=== PATIENT | female | born 1950 | race Caucasian/White ===

== ENCOUNTER 2019-06-24 07:24 | Inpatient (IN) | payer OTHER, MEDICARE ==
[2019-06-24] MEDS ORDERED: PROMETHAZINE 25 MG/ML VIAL ONE ×2 (07:53→08:47)
[2019-06-24] MEDS ORDERED: FENTANYL CITR 100 MCG/2 ML ONE ×3 (07:54→16:13)
[2019-06-24] MEDS ORDERED: NA CHLORIDE 0.9% 1,000 ML ONE ×2 (07:54→20:25)
[2019-06-24 08:07] LABS: Absolute Lymphocytes (CBC) 0.9 K/uL (0.7-4.9); Basophils % 0.5 % (0-1.3); Hematocrit 34.3 % (36.0-45.0); Lymphocytes % 7.9 % (15.3-44.8); MPV 7.9 fL (7.6-11.3); Protime INR 1.13; RBC Red Blood Cell Count 4.52 M/uL (3.86-4.86)
[2019-06-24 08:51] LABS: ALT/SGPT 18 U/L (12-78); AST/SGOT 14 U/L (15-37); Albumin 3.3 g/dL (3.4-5.0); Alkaline Phosphatase 136 U/L (45-117); BUN Blood Urea Nitrogen 19 mg/dL (7-18); Bicarbonate 25 mmol/L (21-32); Bilirubin Direct 0.2 mg/dL (0-0.2); Bilirubin Total 0.6 mg/dL (0.2-1.0); Glucose Level 275 mg/dL (74-106); Lipase 635 U/L (73-393); Magnesium 1.5 mg/dL (1.8-2.4); NT PRO-BNP 124 pg/mL (<125); Potassium 4.1 mmol/L (3.5-5.1); Sodium Level 139 mmol/L (136-145); Troponin (Emerg Dept Use Only) < 0.02 ng/mL (0.0-0.045)
[2019-06-24] MEDS ORDERED: Magnesium Sulfate 2gm IVPB 2 G/50 ML BAG IV ONE (09:43)
--- NOTE | 2019-06-24 10:04 | RAD REPORT ---
EXAM DESCRIPTION: CT - Angio Aorta For Dissection - 06/24/2019 9:15 am CLINICAL HISTORY: pain/vomiting;Abdominal distention COMPARISON: None. TECHNIQUE: Dynamically enhanced 3 mm thick images of the chest, abdomen, and upper pelvis were obtai rikki during administration of approximately 150mL Isovue 370 IV contrast. Sagittal and coronal reconst ruction images were generated using MIP and reviewed. Exam utilizes a protocol to evaluate entire cou rse of the aorta. All CT scans are performed using dose optimization technique as appropriate and may include automated exposure control or mA/KV adjustment according to patient size. FINDINGS: Aorta is normal in diameter with no dissection or other acute aortic findings. Reconstruct ion images show no significant findings. No pulmonary artery abnormality. No cardiomegaly, pericardial thickening or pericardial effusion. Bilateral upper lobes are clear. There is trace stranding in the right middle lobe. Left lower lobe s hows no acute findings. There is trace bronchiectasis. Patient has prominent right lower lobe bronchi ectasis with volume loss. Additional airspace opacities are present in the right lower lobe. Bronchia l wall thickening is present. No pleural thickening, pleural effusion or pneumothorax. No abnormal mediastinal or hilar mass or lymphadenopathy seen. No chest wall mass or abnormal axillar y lymphadenopathy. Celiac, SMA and renal arteries show no suspicious findings. 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 The liver, spleen and pancreas are grossly normal. Cholecystectomy clips are present. No biliary tree dilatation. Renal function is symmetric in the arterial phase. The patient does have a 12 x 8 mm left UPJ calculus causing hydronephrosis of the left pelvis and calices. There is strandi ng in the left perinephric fat compared to the right. Additional calculi are present in the lower boby e calices on the left. No urinary bladder abnormality. Uterus and ovaries show no suspicious findings for age. No mass or abnormal lymphadenopathy. No free air, free fluid or inflammatory stranding. Significant bilateral hip joint degenerative change present. Degenerative changes are present in the spine without an acute bone finding evident. IMPRESSION: No aneurysm, dissection or acute aortic finding identified. Right lower lobe bronchiectasis, bronchial wall thickening, partial atelectasis and airspace opacitie s are present. No remote imaging is available. Acute or chronic nature of the airspace disease cannot be assessed on a single baseline exam. Acute pneumonia superimposed on bronchiolitis/bronchiectasis pattern is suspected and needs correlati on with clinical findings. Left-sided hydronephrosis secondary to a 12 x 8 mm calcification at the left UPJ. The stone is at jones st partially obstructing and needs correlation with clinical presentation.
--- NOTE | 2019-06-24 10:31 | RAD REPORT ---
EXAM DESCRIPTION: RAD - Chest Single View - 06/24/2019 8:16 am CLINICAL HISTORY: Abdominal pain and distention, back pain COMPARISON: None. TECHNIQUE: AP portable chest image was obtained 0814 hours . FINDINGS: Focal interstitial opacification and some patchy alveolar opacities are present in the med ial right lung base. In the absence comparison, right lung base pneumonia is suspected. Lung chacon are otherwise clear. No failure or volume overload. Heart and vasculature are normal. No measurable pleural effusion and no pneumothorax. No acute bony abnormality seen. No acute aortic findings suspected. IMPRESSION: Mild or early right base pneumonia.
[2019-06-24] MEDS ORDERED: PIPER/TAZO/NS 3.375gm 3.375 GM/100 ML BAG ONE (10:47)
--- NOTE | 2019-06-24 10:51 | ER ---
Nurse's Notes [facility] Name: Zeinab Schumacher Age: 68 yrs Sex: Female : 1950 Arrival Date: 06/24/2019 Time: 07:28 Bed 5 Private MD: Haseeb Perez V Diagnosis: Hydronephrosis with renal and ureteral calculous obstruction;Hypomagnesemia;Pneumonia, unspecified organism Presentation: 06/24 07:42 Presenting complaint: Patient states: BACK PAIN x1 MONTH, LEFT FLANK PAIN WITH VOMITING bp SINCE 0400. Transition of care: patient was not received from another setting of care. Onset of symptoms was June 24, 2019 at 04:00. Risk Assessment: Do you want to hurt yourself or someone else? Patient reports no desire to harm self or others. Initial Sepsis Screen: Does the patient meet any 2 criteria? No. Patient's initial sepsis screen is negative. Does the patient have a suspected source of infection? No. Patient's initial sepsis screen is negative. Care prior to arrival: None. 07:42 Method Of Arrival: Wheelchair bp 07:42 Acuity: AGNES 3 bp Triage Assessment: 07:46 General: Appears in no apparent distress. comfortable, Behavior is cooperative, bp appropriate for age, anxious. EENT: No deficits noted. Neuro: No deficits noted. Cardiovascular: No deficits noted. Respiratory: No deficits noted. GI: Reports nausea, vomiting. : Reports urinary frequency. Derm: No deficits noted. Musculoskeletal: No deficits noted. Historical: - Allergies: 07:46 UNKNOWN ANTIBIOTIC; bp - Home Meds: 07:46 Metformin Oral [Active]; Glimepiride Oral [Active]; Tradjenta oral oral [Active]; bp - PMHx: 07:46 Diabetes - NIDDM; GERD; High Cholesterol; Hypertension; bp - PSHx: 07:46 Cholecystectomy; bp - Immunization history:: Adult Immunizations unknown, Adult Immunizations up to date. - Social history:: Smoking status: Patient/guardian denies using tobacco, Smoking status: Patient/guardian denies using tobacco. - Ebola Screening: : No symptoms or risks identified at this time No symptoms or risks identified at this time. Screenin:41 Abuse screen: Denies threats or abuse. Denies injuries from another. Nutritional ph screening: No deficits noted. Tuberculosis screening: No symptoms or risk factors identified. Fall Risk None identified. Assessment: 07:47 Pain: Complains of pain in suprapubic area and left flank. ph 07:47 GI: Abdomen is non-distended, Bowel sounds present X 4 quads. bp 09:02 Reassessment: PT TO CT WITH IRON MELTER. bp 09:22 Reassessment: Patient appears in no apparent distress at this time. Patient is alert, ph oriented x 3, equal unlabored respirations, skin warm/dry/pink. Pt returned from CT, noted to be actively vomiting and c/o LLQ pain, anti-emetic and pain medication administered, see DEC. 11:51 Reassessment: ADMIT COMPLETED, PT ULICES. bp Vital Signs: 07:47 BP 192 / 77; Pulse 85; Resp 20; Temp 97.2; Pulse Ox 100% ; Weight 65.77 kg; Height 5 bp ft. 11 in. (180.34 cm); 08:21 BP 189 / 77; Pulse 79; Resp 19; Pulse Ox 97% ; bp 09:06 BP 178 / 75; Pulse 79; Resp 12; Pulse Ox 98% ; bp 10:41 BP 181 / 91; Pulse 77; Resp 20; Pulse Ox 100% on R/A; ph 11:51 BP 172 / 73; Pulse 98; Resp 16; Temp 97.2; Pulse Ox 97% ; bp 07:47 Body Mass Index 20.22 (65.77 kg, 180.34 cm) bp ED Course: 07:28 Patient arrived in ED. ag5 07:28 Haseeb Perez MD is Private Physician. ag5 07:32 Loretta Olmos [facility]-C [facility]. snw 07:33 Asim Mcwilliams MD is Attending Physician. snw 07:41 Arm band placed on Patient placed in an exam room, on a stretcher. ph 07:42 Ray Lindsay, RN is Primary Nurse. bp 07:43 Triage completed. bp 07:43 Patient has correct armband on for positive identification. Placed in gown. Bed in low ph position. Call light in reach. library monitor on. Pulse ox on. NIBP on. Door closed. Noise minimized. Warm blanket given. 07:48 Radiology exam delayed due to lab results not completed at this time. (BUN/Creatinine). kw1 07:56 Lipase Sent. mh5 07:57 Basic Metabolic Panel Sent. 5 07:57 CBC with Diff Sent. 5 07:57 LFT's Sent. 5 07:57 Magnesium Sent. 5 07:57 NT PRO-BNP Sent. 5 07:57 PT-INR Sent. 5 07:57 Troponin (emerg Dept Use Only) Sent. 5 07:57 Initial lab(s) drawn, by me, sent to lab. Inserted saline lock: 20 gauge in right [facility] antecubital area, using aseptic technique. Blood collected. 08:15 XRAY Chest (1 view) In Process Unspecified. EDMS 08:42 Radiology exam delayed due to lab results not completed at this time. (BUN/Creatinine). kw1 09:14 CT completed. Patient tolerated procedure well. Patient moved back from CT. bq 09:17 CT Aorta for Dissection In Process Unspecified. EDMS 10:49 Haseeb Perez MD is Hospitalizing Provider. snw 11:50 No provider procedures requiring assistance completed. Patient admitted, IV remains in bp place. Administered Medications: 07:57 Drug: NS 0.9% 1000 ml Route: IV; Rate: 125 ml/hr; Site: right antecubital; bp 11:53 Follow up: IV Status: Infusion continued upon admission bp 07:58 Drug: fentaNYL (PF) 25 mcg Route: IVP; Site: right antecubital; bp 08:21 Follow up: Response: Pain is decreased bp 07:58 Drug: Phenergan 6.25 mg Route: IVP; Site: right antecubital; bp 08:21 Follow up: Response: No adverse reaction; Nausea is decreased bp 09:23 Drug: Phenergan 6.25 mg Route: IVP; Site: right antecubital; ph 09:47 Follow up: Response: Nausea is decreased bp 09:30 Drug: Magnesium Sulfate 2 grams Route: IVPB; Infused Over: 2 hrs; Site: right bp antecubital; 11:52 Follow up: IV Status: Completed infusion; IV Intake: 50ml bp 09:39 Drug: fentaNYL (PF) 25 mcg Route: IVP; Site: right antecubital; bp 09:39 Follow up: Response: No adverse reaction bp 10:55 Drug: Zosyn 3.375 grams Route: IVPB; Infused Over: 60 mins; Site: right antecubital; ph 11:52 Follow up: IV Status: Completed infusion; IV Intake: 100ml bp Intake: 11:52 IV: 100ml; Total: 100ml. bp 11:52 IV: 50ml; Total: 150ml. bp Outcome: 10:50 Decision to Hospitalize by Provider. snw 11:50 Admitted to Med/surg accompanied by tech, family with patient, via wheelchair, room bp 410, with chart, Report called to PIA SHOEMAKER 11:50 Condition: stable 11:50 Instructed on the need for admit. 12:02 Patient left the ED. bp Signatures: Dispatcher [employer] EDMS Loretta Olmos, DEPUTY SHERIFF BUILDING GUARD-C DEPUTY SHERIFF BUILDING GUARD-Csnw Adriane Mckeon Patricia RN RN Travis, Elaina [facility] Ray Lindsay RN RN bp Sandy Jones kw1 Dino Rivas ag5
--- NOTE | 2019-06-24 10:52 | EDPHYS ---
Physician Documentation [facility] Name: Zeinab Schumacher Age: 68 yrs Sex: Female : 1950 Arrival Date: 06/24/2019 Time: 07:28 Bed 5 Private MD: Haseeb Perez V ED Physician Asim Mcwilliams HPI: 06/24 08:03 This 68 yrs old Female presents to ER via Wheelchair with complaints of Vomiting, Back snw Pain. 08:03 The patient presents to the emergency department with nausea, vomiting, abdominal pain. snw Onset: The symptoms/episode began/occurred suddenly, at 04:00, and became persistent. Possible causes: unknown. Associated signs and symptoms: Pertinent positives: abdominal pain, nausea, vomiting. Severity of symptoms: At their worst the symptoms were moderate severe in the emergency department the symptoms are unchanged. The patient has not experienced similar symptoms in the past. The patient has been recently seen by a physician: the patient's primary care provider, Dr. Perez with different complaint(s), and apparently was diagnosed with GERD. Historical: - Allergies: 07:46 UNKNOWN ANTIBIOTIC; bp - Home Meds: 07:46 Metformin Oral [Active]; Glimepiride Oral [Active]; Tradjenta oral oral [Active]; bp - PMHx: 07:46 Diabetes - NIDDM; GERD; High Cholesterol; Hypertension; bp - PSHx: 07:46 Cholecystectomy; bp - Immunization history:: Adult Immunizations unknown, Adult Immunizations up to date. - Social history:: Smoking status: Patient/guardian denies using tobacco, Smoking status: Patient/guardian denies using tobacco. - Ebola Screening: : No symptoms or risks identified at this time No symptoms or risks identified at this time. ROS: 08:02 Constitutional: Negative for fever, chills, and weight loss, Eyes: Negative for injury, snw pain, redness, and discharge, ENT: Negative for injury, pain, and discharge, Neck: Negative for injury, pain, and swelling, Cardiovascular: Negative for chest pain, palpitations, and edema, Respiratory: Negative for shortness of breath, cough, wheezing, and pleuritic chest pain. 08:02 : Negative for injury, bleeding, discharge, and swelling, MS/Extremity: Negative for injury and deformity, Skin: Negative for injury, rash, and discoloration, Neuro: Negative for headache, weakness, numbness, tingling, and seizure. 08:02 Abdomen/GI: Positive for abdominal pain, nausea and vomiting. 08:02 Abdomen/GI: Positive for "just dx with GERD". 08:02 Back: Positive for pain with movement, of the low back area and right mid back, Hurting for some time as pt "took a fall" about a month ago.. Exam: 08:00 Head/Face: Normocephalic, atraumatic. Eyes: Pupils equal round and reactive to light, snw extra-ocular motions intact. Lids and lashes normal. Conjunctiva and sclera are non-icteric and not injected. Cornea within normal limits. Periorbital areas with no swelling, redness, or edema. ENT: Nares patent. No nasal discharge, no septal abnormalities noted. Tympanic membranes are normal and external auditory canals are clear. Oropharynx with no redness, swelling, or masses, exudates, or evidence of obstruction, uvula midline. Mucous membranes moist. Neck: Trachea midline, no thyromegaly or masses palpated, and no cervical lymphadenopathy. Supple, full range of motion without nuchal rigidity, or vertebral point tenderness. No Meningismus. Chest/axilla: Normal chest wall appearance and motion. Nontender with no deformity. No lesions are appreciated. Cardiovascular: Regular rate and rhythm with a normal S1 and S2. No gallops, murmurs, or rubs. Normal PMI, no JVD. No pulse deficits. Respiratory: Lungs have equal breath sounds bilaterally, clear to auscultation and percussion. No rales, rhonchi or wheezes noted. No increased work of breathing, no retractions or nasal flaring. Back: No spinal tenderness. No costovertebral tenderness. Full range of motion. MS/ Extremity: Pulses equal, no cyanosis. Neurovascular intact. Full, normal range of motion. Neuro: Awake and alert, GCS 15, oriented to person, place, time, and situation. Cranial nerves II-XII grossly intact. Motor strength 5/5 in all extremities. Sensory grossly intact. Cerebellar exam normal. Normal gait. 08:00 Constitutional: The patient appears alert, awake, frail. 08:00 Abdomen/GI: Inspection: abdomen appears normal, Bowel sounds: diminished, in all quadrants, Palpation: moderate abdominal tenderness, in the left upper quadrant and left lower quadrant. Vital Signs: 07:47 BP 192 / 77; Pulse 85; Resp 20; Temp 97.2; Pulse Ox 100% ; Weight 65.77 kg; Height 5 bp ft. 11 in. (180.34 cm); 08:21 BP 189 / 77; Pulse 79; Resp 19; Pulse Ox 97% ; bp 09:06 BP 178 / 75; Pulse 79; Resp 12; Pulse Ox 98% ; bp 10:41 BP 181 / 91; Pulse 77; Resp 20; Pulse Ox 100% on R/A; ph 11:51 BP 172 / 73; Pulse 98; Resp 16; Temp 97.2; Pulse Ox 97% ; bp 07:47 Body Mass Index 20.22 (65.77 kg, 180.34 cm) bp MDM: 07:33 Patient medically screened. snw 10:50 Data reviewed: vital signs, nurses notes. Data interpreted: Pulse oximetry: on is 100 snw %. Interpretation: normal. Counseling: I had a detailed discussion with the patient and/or guardian regarding: the historical points, exam findings, and any diagnostic results supporting the discharge/admit diagnosis, the presence of at least one elevated blood pressure reading (>120/80) during this emergency department visit, lab results, radiology results, the need for further work-up and treatment in the hospital. Response to treatment: the patient's symptoms have mildly improved after treatment. Physician consultation: Haseeb Perez MD was called at 10:15, was contacted at 10:15, regarding admission, to the telemetry unit. patient's condition, would like consultation with Dr. Dr. Zhong. Physician consultation: Cheryl Zhong MD was called at 10:40, was contacted at 10:40, regarding consult. 06/24 07:44 Order name: Basic Metabolic Panel; Complete Time: 08:53 snw 06/24 07:44 Order name: CBC with Diff; Complete Time: 13:32 snw 06/24 07:44 Order name: LFT's; Complete Time: 08:53 snw 06/24 07:44 Order name: Magnesium; Complete Time: 08:53 snw 06/24 07:44 Order name: NT PRO-BNP; Complete Time: 08:53 snw 06/24 07:44 Order name: PT-INR; Complete Time: 08:16 snw 06/24 07:44 Order name: CT Aorta for Dissection; Complete Time: 10:09 snw 06/24 07:44 Order name: Troponin (emerg Dept Use Only); Complete Time: 08:53 snw 06/24 07:44 Order name: XRAY Chest (1 view); Complete Time: 10:35 snw 06/24 07:44 Order name: Lipase; Complete Time: 08:53 snw 06/24 10:42 Order name: Abdomen 1 View (KUB) XRAY snw 06/24 11:03 Order name: Urine Dipstick--Ancillary (enter results); Complete Time: 13:32 bd 06/24 12:01 Order name: CBC Smear Scan; Complete Time: 13:32 EDMS 06/24 07:44 Order name: EKG; Complete Time: 07:45 snw 06/24 07:44 Order name: Cardiac monitoring; Complete Time: 07:57 snw 06/24 07:44 Order name: EKG - Nurse/Tech; Complete Time: 07:59 snw 06/24 07:44 Order name: IV Saline Lock; Complete Time: 07:57 snw 06/24 07:44 Order name: Labs collected and sent; Complete Time: 07:57 snw 06/24 07:44 Order name: O2 Per Protocol; Complete Time: 07:59 snw 06/24 07:44 Order name: O2 Sat Monitoring; Complete Time: 07:59 snw 06/24 10:42 Order name: NPO; Complete Time: 10:43 snw 06/24 11:17 Order name: CONS Physician Consult EDMS 06/24 10:42 Order name: Misc. Order: No anticoagulants; Complete Time: 10:45 snw Administered Medications: 07:57 Drug: NS 0.9% 1000 ml Route: IV; Rate: 125 ml/hr; Site: right antecubital; bp 11:53 Follow up: IV Status: Infusion continued upon admission bp 07:58 Drug: fentaNYL (PF) 25 mcg Route: IVP; Site: right antecubital; bp 08:21 Follow up: Response: Pain is decreased bp 07:58 Drug: Phenergan 6.25 mg Route: IVP; Site: right antecubital; bp 08:21 Follow up: Response: No adverse reaction; Nausea is decreased bp 09:23 Drug: Phenergan 6.25 mg Route: IVP; Site: right antecubital; ph 09:47 Follow up: Response: Nausea is decreased bp 09:30 Drug: Magnesium Sulfate 2 grams Route: IVPB; Infused Over: 2 hrs; Site: right bp antecubital; 11:52 Follow up: IV Status: Completed infusion; IV Intake: 50ml bp 09:39 Drug: fentaNYL (PF) 25 mcg Route: IVP; Site: right antecubital; bp 09:39 Follow up: Response: No adverse reaction bp 10:55 Drug: Zosyn 3.375 grams Route: IVPB; Infused Over: 60 mins; Site: right antecubital; ph 11:52 Follow up: IV Status: Completed infusion; IV Intake: 100ml bp Disposition: 17:52 Co-signature as Attending Physician, Asim Mcwilliams MD. rn Disposition: 06/24/19 10:50 Hospitalization ordered by Haseeb Perez for Inpatient Admission. Preliminary diagnosis are Hydronephrosis with renal and ureteral calculous obstruction, Hypomagnesemia, Pneumonia, unspecified organism. - Bed requested for Telemetry/MedSurg (Inpatient). - Status is Inpatient Admission. bp - Condition is Stable. - Problem is new. - Symptoms are unchanged. UTI on Admission? No Signatures: Dispatcher [employer] EDMS Glenys Correia Shelly, ACCOUNT RESOLUTION ANALYST-C ACCOUNT RESOLUTION ANALYST-Csnw Asim Mcwilliams MD MD rn Hall, Patricia, RN RN ph Peltier, Brian, RN RN bp Corrections: (The following items were deleted from the chart) 11:38 10:50 Hospitalization Ordered by Haseeb Perez MD for Inpatient Admission. Preliminary bd diagnosis is Hydronephrosis with renal and ureteral calculous obstruction; Hypomagnesemia; Pneumonia, unspecified organism. Bed requested for Telemetry/MedSurg (Inpatient). Status is Inpatient Admission. Condition is Stable. Problem is new. Symptoms are unchanged. UTI on Admission? No. snw 12:02 11:38 06/24/2019 10:50 Hospitalization Ordered by Haseeb Perez MD for Inpatient bp Admission. Preliminary diagnosis is Hydronephrosis with renal and ureteral calculous obstruction; Hypomagnesemia; Pneumonia, unspecified organism. Bed requested for Telemetry/MedSurg (Inpatient). Status is Inpatient Admission. Condition is Stable. Problem is new. Symptoms are unchanged. UTI on Admission? No. bd
[2019-06-24 11:50] VITALS: BMI 20.2
[2019-06-24 11:51] LABS: Urine Blood 2+ (NEG); Urine Glucose 2+ (NEG); Urine Protein 2+ (NEG); Urine Specific Gravity 1.015 (1.005-1.030); Urine pH 6.5 (5.0-7.0)
[2019-06-24 12:00] LABS: Blood Morphology Comment NOT SEEN (NOT SEEN); Platelet Estimate ADEQ; Urine White Blood Cell Casts OK
[2019-06-24] MEDS ORDERED: NA CHLORIDE 0.9% 1,000 ML IV SCH (12:00)
[2019-06-24] MEDS ORDERED: ALBUTEROL 2.5 MG/3 ML NEB SOL NEB PRN (12:06)
[2019-06-24] MEDS ORDERED: GLUCAGON 1 MG/VIAL IM PRN (12:06)
[2019-06-24] MEDS ORDERED: D50W 25 GM/50 ML SYRINGE IV PRN (12:06)
[2019-06-24] MEDS ORDERED: PROMETHAZINE 25 MG/ML VIAL IV PRN (12:06)
[2019-06-24] MEDS ORDERED: IPRATROPIUM BROM 0.5MG/2.5ML NEB PRN (12:06)
[2019-06-24] MEDS ORDERED: MORPHINE 4 MG/ML SYR IV PRN (12:06)
--- NOTE | 2019-06-24 12:11 | RAD REPORT ---
EXAM DESCRIPTION: RAD - Abdomen 1 View (KUB) - 06/24/2019 11:37 am CLINICAL HISTORY: KIDNEY STONES COMPARISON: Angio Aorta For Dissection dated 06/24/2019 FINDINGS: Bowel gas pattern is nonspecific. Bowel gas assessment is limited on this examination. Con trast is present in the collecting systems from prior CT study. CT showed left UPJ calculus. That is seen as a filling defect on this examination. There is contrast in the distal left ureter indicating only incomplete obstructive process. There is blunting of the calices and proximal left-sided hydrone phrosis matching the CT finding. Right-sided hydronephrosis is not identified. No free air or pneumatosis. Urinary bladder is distended. IMPRESSION: Proximal left pelvis and calyx hydronephrosis secondary to a partially obstructing stone at the left UPJ. Contrast is seen in a nondilated left ureter distal to the stone.
[2019-06-24] MEDS: Levofloxacin500mg IV 500 MG/100 ML BAG IV SCH (12:40)
[2019-06-24] MEDS: INSULIN -REGULAR HUMAN 50 UNIT/0.5 ML ML IV SCH ×2 (12:40→18:25)
[2019-06-24] MEDS ORDERED: PNEUMOCOCCAL VACCINE 0.5 ML IMVAC ONE (14:00)
--- NOTE | 2019-06-24 15:33 | EKG ---
Test Date: 2019-06-24 Test Time: 08:09:03 Cylinder Press Operator Apprentice: SURENDRA MEASUREMENT RESULTS: Intervals: Rate: 81 [place]: 136 QRSD: 90 QT: 394 QTc: 457 [place]: P: 18 [place]: 136 QRS: 25 T: 65 INTERPRETIVE STATEMENTS: Normal sinus rhythm Normal ECG No previous ECG available for comparison Electronically Signed On 06-24-19 15:32:51 CDT by Drew Snider
[2019-06-24] MEDS ORDERED: PROPOFOL 200 MG/20 ML VIAL IV ONE (15:46)
[2019-06-24] MEDS ORDERED: LIDOCAINE 1% MPF 5 ML VIAL ONE (15:47)
[2019-06-24] MEDS ORDERED: Phenylephrine HCl 10 MG/ML 1 ML VIAL ONE (15:49)
[2019-06-24] MEDS ORDERED: NA CIT/CITRIC AC 30 ML ORAL UDC ONE (15:54)
[2019-06-24] MEDS ORDERED: ONDANSETRON 4 MG/2 ML VIAL ONE (15:57)
[2019-06-24] MEDS ORDERED: KETOROLAC 30 MG/ML INJ ONE (16:16)
[2019-06-24] MEDS ORDERED: dexAMETHasone 10 MG/ML VIAL ONE (16:17)
[2019-06-24] MEDS: METFORMIN HCL 500 MG TAB PO SCH (17:00)
--- NOTE | 2019-06-24 17:44 | RAD REPORT ---
EXAM DESCRIPTION: RAD - Urethrocystogrphy Retrograde - 06/24/2019 4:49 pm FINDINGS: There were 9 portable KUB examination is obtained during fluoroscopic assisted placement o f a left ureteral stent. No suspicious or unexpected finding. Fluoro time was 1 minutes 1 second.
--- NOTE | 2019-06-24 17:49 | P.HP ---
Certification for Inpatient Patient admitted to: Observation With expected LOS: <2 Midnights Practitioner: I am a practitioner with admitting privileges, knowledge of patient current condition, hospital course, and medical plan of care. Services: Services provided to patient in accordance with Admission requirements found in Title 42 Section 412.3 of the Code of Federal Regulations Patient History Date of Service: 06/24/19 Reason for admission: L SIDE GROIN PAIN History of Present Illness: MS. THAO IS A DIABETIC WHO IS NOT TAKING CARE OF HERSELF HER IS VERY ILL, OBESE AND DEENDENT ON HER. SHE COMES WITH LLQ ABDOMEN PAIN, IS FOUND TO HAVE URETERIC STONE WITH HYDRONEPHROSIS. SHE HAS CHRONIC COUGH FROM GERD BUT ALSO SHOWS SMALL RLL PNEUMONIA. Allergies No Known Allergies Allergy (Verified 06/24/19 12:06) Home Medications: Glimepiride 4 mg PO BID 06/24/19 Linagliptin [Tradjenta] 30 mg PO DAILY 06/24/19 Lisinopril [Prinivil*] 1 tab PO DAILY 06/24/19 Metformin HCl 1,000 mg PO BID 06/24/19 Pravastatin Sodium 1 tab PO DAILY 06/24/19 - Past Medical/Surgical History Has patient received pneumonia vaccine in the past: No Diabetic: Yes -: Diabetes -: GERD -: cholecystectomy - Family History Mother -: Diabetes Father Notes: parkinson - Social History Smoking Status: Never smoker Alcohol use: No CD- Drugs: No Caffeine use: Yes Place of Residence: Home Review of Systems 10-point ROS is otherwise unremarkable General: Weakness, Malaise Physical Examination - Vital Signs Temperature: 98.5 F Blood Pressure: 133/61 Pulse: 93 Respirations: 18 Pulse Ox (%): 97 - Physical Exam General: Oriented x3, Mild distress HEENT: Atraumatic, PERRLA, Mucous membr. moist/pink, EOMI, Sclerae nonicteric Neck: Supple, 2+ carotid pulse no bruit, No LAD, Without JVD or thyroid abnormality Respiratory: Clear to auscultation bilaterally, Normal air movement Cardiovascular: Regular rate/rhythm, Normal S1 S2 Gastrointestinal: Tenderness (LLQ) Musculoskeletal: No tenderness Integumentary: No rashes Neurological: Normal gait, Normal speech, Normal strength at 5/5 x4 extr, Normal tone, Normal affect Lymphatics: No axilla or inguinal lymphadenopathy - Studies Laboratory Data (last 24 hrs) 06/24/19 07:50: PT 13.3 H, INR 1.13 06/24/19 07:50: WBC 11.0 H, Hgb 10.8 L, Hct 34.3 L, Plt Count 330 06/24/19 07:50: Sodium 139, Potassium 4.1, BUN 19 H, Creatinine 0.80, Glucose 275 H, Magnesium 1.5 L, Total Bilirubin 0.6, AST 14 L, ALT 18, Alkaline Phosphatase 136 H, Lipase 635 H Assessment and Plan - Problems (Diagnosis) (1) Abdominal pain, LLQ Current Visit: Yes Status: Acute Plan: SP STENT BY DR MAHER HE WILL SEND HER HOME IN AM. (2) Hydronephrosis with renal calculous obstruction Current Visit: Yes Status: Acute Plan: ABOVE. (3) Diabetes Current Visit: Yes Status: Chronic Plan: NOT COMPLIANT AT OFFICE. THEY DON'T LEAVE HOME FOR MONTHS PER FRIEND. THEY CANCEL APTS MULTIPLE TIMES. Qualifiers: Diabetes mellitus type: type 2 (4) Hyperglobulinemia Current Visit: Yes Status: Chronic Plan: WILL FU WITH FURTHER LAB. SHE HAS HARD TIME GOING FOR TESTS. IDEALLY I NEED MRCP BUT SHE CAN'T STAY HERE SHE HAS CRIPPLED . (5) High alkaline phosphatase Current Visit: Yes Status: Acute - Advance Directives Does patient have a Living Will: No Does patient have a Durable POA for Healthcare: No
[2019-06-24] MEDS: NA CHLORIDE 0.9% 1,000 ML IV SCH (18:00)
[2019-06-24 19:41] LABS: Urine Bacteria 20-50 /HPF (<20); Urine Culture Reflex Order NOT NEEDED; Urine RBC TNTC /HPF (NONE SEEN)
[2019-06-24 20:43] LABS: Urine Bacteria <20 /HPF (<20); Urine Culture Reflex Order NOT NEEDED; Urine RBC TNTC /HPF (NONE SEEN)
[2019-06-24] MEDS ORDERED: ATORVASTATIN 10 MG TAB PO SCH (21:00)
[2019-06-24] MEDS: GLIMEPIRIDE 2 MG TABLET PO SCH (21:26)
--- NOTE | 2019-06-24 21:54 | CON ---
History Of Present Illness: A 68-year-old female. The of one of my patient suddenly developed left flank pain this morning at 4 a.m. associated with nausea and vomiting. She came into the emergency room where a CT scan done for rule out kidney infection, what found was she has 2 renal arteries, normal variant, but she does have a 12 x 8 mm calcification at left UPJ obstructing the pelvis. She has no aneurysm. Allergies: SOME UNKNOWN ANTIBIOTICS _. Medications: Metformin, Tradjenta. No aspirin or any anticoagulations. Past Medical History: History of diabetes, non-insulin dependent diabetes and also GERD, high cholesterol, and hypertension. Past medical history of cholecystectomy. Immunizations: Up-to-date. Review of Systems: Constitutional: Negative for fever, chills, or weight loss sign. Negative for injury. ENT: Negative for neck pain or discharge. Cardiovascular: Negative for chest pain. Respiratory: Negative for shortness of breath. GI: Positive for nausea, vomiting. : As mentioned above. Positive for kidney stones. Back: Negative for any back pain or paralysis. Physical Examination: Vital Signs: 97.5, 92, 19, 172/84, 96% sat on room air. General: She is in no acute distress. Well-developed female. HEENT: Atraumatic, normocephalic. Lungs: Clear. Heart: S1, S2. Abdomen: Soft, nontender. Extremities: Normal range of motion. Laboratory Data: Shows urine pH 6.5, blood 2+, nitrite negative, esterase negative, glucose 2+, total protein 2+. Chemistries; sodium of 139, potassium 4.1, chloride 100, carbon dioxide 25, BUN 19, creatinine 0.8, GFR 71, glucose 275, calcium 9.2, magnesium 1.5. Coagulation normal. Hematology; white count 11.0, H and H 10 and 34, platelet count 330. Assessment: Likely ureteropelvic junction stone 12 x 8 mm causing nausea, vomiting, pain. Plan: Plan is to provide cystoscopy, stent placement. All the general information, alternatives, and risks were reviewed with the patient. She wished to proceed. She has essentially been n.p.o. since yesterday. MIAH/YOSELIN Voice ID: [id number] Report ID: [id number]
[2019-06-25] MEDS: INSULIN -REGULAR HUMAN 50 UNIT/0.5 ML ML IV SCH ×2 (00:53→06:41)
[2019-06-25] MEDS: NA CHLORIDE 0.9% 1,000 ML IV SCH ×2 (00:54→08:18)
--- NOTE | 2019-06-25 04:16 | OP ---
Surgeon: Cheryl Zhong MD Vice President Industrial Relations: None. Anesthesiologist: Dr. Adam. Preoperative Diagnosis: Left ureteropelvic junction stone, 8 mm. Postoperative Diagnoses: 1. Left ureteropelvic junction stone, 8 mm. 2. Two erythematous spots on the right posterior bladder and left posterior bladder. Procedure Performed: Cystoscopy, biopsy of bilateral areas on the bladder and fulguration, left retrograde pyelogram, and insertion of double-J stent, 6 x 28 cm stent, string left in the vagina and urethral Saleh catheter placement. Anesthesia: General anesthesia. Estimated Blood Loss: Minimal. Replacement: See record. Pathology Specimen: Right and left bladder. Complications: None. Drains: Saleh as above. Indications: 68-year-old lady admitted for left ureteral colic, nausea and vomiting. It was deemed necessary to proceed with cystoscopy and stent placement. All the general information, alternatives, and risks were given. She was preoped and consented for cystoscopy, left retrograde pyelogram, insertion of double-J stent, and any indicated procedures. Description Of Procedure: She was taken to the operative suite. She received preoperative antibiotics on the floor. She was placed in supine lithotomy position. After general anesthesia was administered, the area was prepped and draped in the usual sterile fashion. I entered the bladder with a 30-degree lens, scoped the bladder and saw erythematous patch in the right posterior bladder and left posterior bladder. Images were taken. Both orifices were in normal anatomical position. We used a 70-degree lens to scope the rest of the bladder and the dome that was clear. I then switched to a resectoscope loop and dissected the area, right posterior bladder and left posterior bladder were then . Otherwise same resectoscope was placed with 30 degree lens. Right posterior bladder tumor was resected. Left posterior bladder tumor was resected and sent in a separate specimen. The area was fulgurated with the rollerball and then we switched to a regular cystoscope with the left retrograde pyelogram showing obstruction of the left UPJ. There was still contrast in the left collecting system above the stone and slight contrast in the right pelvis also from the original CT scan. A wire was placed. The stone was impacted. We managed to push the stone all the way and got the wire into the renal pelvis and then placed a 6-Maltese x 28 cm stent after the ureter was measured. Because of curl in the renal pelvis and in the bladder, a string was placed in the vagina and a regular Saleh catheter was placed into the bladder for drainage overnight. MIAH/YOSELIN Voice ID: [id number] Report ID: [id number]
[2019-06-25 06:04] LABS: Absolute Lymphocytes (CBC) 1.4 K/uL (0.7-4.9); Basophils % 0.1 % (0-1.3); Hematocrit 30.2 % (36.0-45.0); Lymphocytes % 7.5 % (15.3-44.8); RBC Red Blood Cell Count 4.01 M/uL (3.86-4.86)
[2019-06-25 06:25] LABS: Potassium 4.1 mmol/L (3.5-5.1)
[2019-06-25] MEDS: METFORMIN HCL 500 MG TAB PO SCH (08:16)
[2019-06-25] MEDS: GLIMEPIRIDE 2 MG TABLET PO SCH (08:17)
[2019-06-25] MEDS ORDERED: LINAGLIPTIN PO SCH (09:00)
[2019-06-25] MEDS ORDERED: LISINOPRIL 20 MG TAB PO SCH (09:00)
--- NOTE | 2019-06-25 10:32 | RAD REPORT ---
EXAM DESCRIPTION: RAD - Abdomen 1 View (KUB) - 06/25/2019 5:54 am CLINICAL HISTORY: check stone and stent Pain COMPARISON: Abdomen 1 View (KUB) dated 06/24/2019 FINDINGS: The bowel gas pattern is non-obstructive. No evidence of free air or pneumatosis. Left doug ble-J stent is in place in expected alignment and positioning. Two calculi are identified in the left kidney, a prominent triangular calculus adjacent to the proxim al aspect of stent in a smaller irregularly shaped calculus in the inferior calyx left kidney.
[2019-06-25] MEDS: Levofloxacin500mg IV 500 MG/100 ML BAG IV SCH (10:50)
[2019-06-25 11:29] VITALS: O2SAT 96
[2019-06-25] MEDS: INSULIN -REGULAR HUMAN 50 UNIT/0.5 ML ML SQ SCH ×2 (12:01→16:30)
--- NOTE | 2019-06-25 12:26 | PN ---
The patient is stable. Of interest today that her white count is up to 17,000 from yesterday. Discu ssed this with Dr. Perez. We will keep an extra day her stent shooting with position. We are still concerned about this possible pneumonia that she may have in the right lower lobe. She is completely asymptomatic from it. We will continue IV antibiotics now and wait for clearance from Dr. Perez bef ore we proceed with the left ESWL. We may have to wait a week or 2 if she has a pneumonia. MIAH/YOSELIN Voice ID: [id number] Report ID: [id number]
[2019-06-25 14:18] VITALS: BP 143/66; TEMP 98.9
[2019-06-25 15:18] LABS: Absolute Lymphocytes (CBC) 1.3 K/uL (0.7-4.9); Basophils % 0.4 % (0-1.3); Hematocrit 28.2 % (36.0-45.0); Lymphocytes % 7.7 % (15.3-44.8); MPV 7.7 fL (7.6-11.3); RBC Red Blood Cell Count 3.78 M/uL (3.86-4.86)
[2019-06-25] MEDS ORDERED: METFORMIN HCL 500 MG TAB PO SCH (17:00)
--- NOTE | 2019-06-25 20:49 | P.DS ---
Admission Date: 06/24/19 Discharge Date: 06/25/19 Disposition: ROUTINE DISCHARGE Discharge Condition: FAIR Reason for Admission: L SIDE GROIN PAIN - Problems (1) Abdominal pain, LLQ Status: Acute (2) Hydronephrosis with renal calculous obstruction Status: Acute (3) Diabetes Status: Chronic Qualifiers: Diabetes mellitus type: type 2 (4) Hyperglobulinemia Status: Chronic (5) High alkaline phosphatase Status: Acute Brief History of Present Illness: MS. THAO IS A DIABETIC WHO IS NOT TAKING CARE OF HERSELF HER IS VERY ILL, OBESE AND DEENDENT ON HER. SHE COMES WITH LLQ ABDOMEN PAIN, IS FOUND TO HAVE URETERIC STONE WITH HYDRONEPHROSIS. SHE HAS CHRONIC COUGH FROM GERD BUT ALSO SHOWS SMALL RLL PNEUMONIA. Hospital Course: ZURDO HAS DONE WELL AFTER STENT. SHE HAS VERY MINIMAL COUGH, SHE HAS NO PAIN IN ABDOMEN NOW. SHE IS STABLE FOR DC . I MADE SURE HER WBC ON A LOWERING TREND BEFORE I SENT HER HOME. SHE HAS CRIPPLED WHO IS MORBIDLY OBESE HAS SEVERE LEG ULCERS FROM VENOUS STASIS AND NEEDS TO BE TAKEN CARE OFF. THIS IS WHY I AM SENDING HER HOME TONIGHT. Vital Signs/Physical Exam: Temp Pulse Resp BP Pulse Ox 98.9 F 86 18 143/66 H 97 06/25/19 12:00 06/25/19 12:00 06/25/19 12:00 06/25/19 12:00 06/25/19 12:00 General: Alert, In no apparent distress HEENT: Atraumatic, PERRLA, EOMI Neck: Supple, JVD not distended Respiratory: Clear to auscultation bilaterally, Normal air movement Cardiovascular: Regular rate/rhythm, Normal S1 S2 Gastrointestinal: Normal bowel sounds, No tenderness Musculoskeletal: No tenderness Integumentary: No rashes Neurological: Normal speech, Normal tone, Normal affect Lymphatics: No axilla or inguinal lymphadenopathy Laboratory Data at Discharge: WBC 16.7 K/uL (4.3-10.9) H 06/25/19 14:51 Hgb 9.4 g/dL (12.0-15.0) L 06/25/19 14:51 Hct 28.2 % (36.0-45.0) L 06/25/19 14:51 Plt Count 310 K/uL (152-406) 06/25/19 14:51 PT 13.3 SECONDS (9.5-12.5) H 06/24/19 07:50 INR 1.13 06/24/19 07:50 Sodium 140 mmol/L (136-145) 06/25/19 05:12 Potassium 4.1 mmol/L (3.5-5.1) 06/25/19 05:12 BUN 14 mg/dL (7-18) 06/25/19 05:12 Creatinine 0.72 mg/dL (0.55-1.3) 06/25/19 05:12 Glucose 226 mg/dL (74-106) H 06/25/19 05:12 Magnesium 1.5 mg/dL (1.8-2.4) L 06/24/19 07:50 Total Bilirubin 0.6 mg/dL (0.2-1.0) 06/24/19 07:50 AST 14 U/L (15-37) L 06/24/19 07:50 ALT 18 U/L (12-78) 06/24/19 07:50 Alkaline Phosphatase 136 U/L (45-117) H 06/24/19 07:50 Lipase 635 U/L (73-393) H 06/24/19 07:50 Home Medications: Glimepiride 4 mg PO BID 06/24/19 Linagliptin [Tradjenta] 30 mg PO DAILY 06/24/19 Lisinopril [Prinivil*] 1 tab PO DAILY 06/24/19 Metformin HCl 500 mg PO BID 06/24/19 Pravastatin Sodium 1 tab PO DAILY 06/24/19 levoFLOXacin [Levaquin*] 500 mg PO DAILY #10 tab 06/25/19 New Medications: levoFLOXacin [Levaquin*] 500 mg PO DAILY #10 tab Followup: Cheryl Zhong MD [ACTIVE - CAN ADMIT] - (Call Wednesday to schedule a follow up visit. ) Haseeb Perez MD [Primary Care Provider] - 06/30/19 (Call to schedule an appointment)
== END 2019-06-25 17:01 | disposition home or self-care (01) | DRG 659 ==
LOC: ER 07:24 → ERHOLD 11:14 → 4TH 11:51
PROVIDERS: ADMIT Internal Medicine; ATTEND Internal Medicine
PROC: 0T778DZ Dilation of Left Ureter with Intraluminal Device, Via Natural or Artificial Opening Endoscopic (ICD-10-PCS; 2019-06-24)
PROC: 0WHR8YZ Insertion of Other Device into Genitourinary Tract, Via Natural or Artificial Opening Endoscopic (ICD-10-PCS; 2019-06-24)
PROC: BT1FZZZ Fluoroscopy of Left Kidney, Ureter and Bladder (ICD-10-PCS; 2019-06-24)
PROC: 0TBB8ZX Excision of Bladder, Via Natural or Artificial Opening Endoscopic, Diagnostic (ICD-10-PCS; principal; 2019-06-24 15:30)
DX: N13.2 Hydronephrosis with renal and ureteral calculous obstruction (principal); J18.9 Pneumonia, unspecified organism; E11.9 Type 2 diabetes mellitus without complications; R77.1 Abnormality of globulin; L53.8 Other specified erythematous conditions
CPT/HCPCS: 36415; 51610; 71045; 71275; 74018; 74175; 74450; 80048; 80076; 81003; 81015; 82962; 83690; 83735; 83880; 84484; 85025; 85610; 87086; 87088; 88305; 93005; 94760; 96361; 96365; 96366; 96368; 96375; 99285; J1100; J2370; J2405; J2543; J2550; J2704; J3010; J3475; J7030; Q9967